=== PATIENT | female | born 1960 | race Caucasian/White ===

== ENCOUNTER 2020-11-11 07:05 | Day surgery (SDC) | payer OTHER, SELFPAY ==
[~2020-11-11] VITALS: Ht 149.9 cm; Wt 65.8 kg
[2020-11-11] MEDS ORDERED: fentaNYL citrate 0.05 MG/ML VIAL ONE (08:12)
[2020-11-11] MEDS ORDERED: diphenhydrAMINE 50 MG/ML VIAL ONE (08:12)
[2020-11-11] MEDS ORDERED: MIDAZOLAM 5 MG/5 ML VIAL ONE (08:13)
[2020-11-11] MEDS ORDERED: MIDAZOLAM 2 MG/2 ML VIAL IVP ONE (09:15)
[2020-11-11] MEDS ORDERED: fentaNYL citrate 0.05 MG/ML VIAL IVP ONE (09:15)
== END 2020-11-11 09:00 | disposition home or self-care (01) ==
LOC: MDS 07:05 → MFCC 07:09 → MDS 09:00
PROVIDERS: ATTEND Internal Medicine Gastroenterology
DX: K21.00 Gastro-esophageal reflux disease with esophagitis, without bleeding (principal); I25.10 Atherosclerotic heart disease of native coronary artery without angina pectoris; K29.70 Gastritis, unspecified, without bleeding; G47.30 Sleep apnea, unspecified; Z90.49 Acquired absence of other specified parts of digestive tract; Z79.82 Long term (current) use of aspirin; Z79.899 Other long term (current) drug therapy; Z20.828 Contact with and (suspected) exposure to other viral communicable diseases
CPT/HCPCS: 43239; J2250; J3010; U0003; J1200